=== PATIENT | male | born 1985 | race Two or more races ===

== ENCOUNTER 2023-07-17 07:48 | Emergency (ER) | payer SELFPAY ==
[~2023-07-17] VITALS: Ht 170.2 cm; Wt 77.1 kg
[2023-07-17] MEDS ORDERED: KETOROLAC TROMETHAMINE INJ 30 MG/ML VIAL ONE (08:24)
[2023-07-17] MEDS: KETOROLAC TROMETHAMINE INJ 60 MG/2 ML VIAL IM ONE (08:38)
[2023-07-17] MEDS ORDERED: CARI350T PO (09:59)
[2023-07-17 10:09] VITALS: BP 120/70; TEMP 98.1; O2SAT 100
== END 2023-07-17 10:09 | disposition home or self-care (01) ==
LOC: ER 07:54
DX: M54.9 Dorsalgia, unspecified (principal); Z88.0 Allergy status to penicillin
CPT/HCPCS: 99285; 72131; 96372; J1885